=== PATIENT | female | born 1955 | race Caucasian/White ===

== ENCOUNTER → 2020-11-04 | Outpatient (CLI) | payer MEDICARE, OTHER ==
[~2020-11-04] VITALS: Ht 172.7 cm; Wt 108.0 kg
[~2020-11-04] MED LIST: AMARYL2 M1 PO; HYDROCODON-ACE1 EAC7 PO; HYDROXYZINE HCL25 M2 PO; LEXAPRO20 MG PO; LISINOPRIL-HCT1 EAC2 PO; MELOXICAM15 MG PO; METFORMIN HCL500 M3 PO; METHOCARBAMOL750 MG PO; NEURONTIN 300M300 M2 PO; PERCOCET PO; PROVENTIL HFA6.7 G1 INH; ROSUVASTATIN CA20 MG PO; TRAMADOL 50 MG50 MG PO; VOLTAREN100 GM TOP; WELLBUTRIN SR150 MG PO
[2020-11-04 10:31] LABS: ABSOLUTE BASOPHILS 0.1 thou/uL (0.0-0.2); ABSOLUTE EOSINOPHILS 0.3 thou/uL (0.0-0.7); ABSOLUTE LYMPHOCYTES 2.3 thou/uL (0.8-5.3); ABSOLUTE MONOCYTES 1.4 thou/uL (0.0-1.2); ABSOLUTE NEUTROPHILS 6.9 thou/uL (1.6-8.1); BASOPHILS 0.8 %; EOSINOPHILS 2.4 %; HEMATOCRIT 35.4 % (37.0-47.0); LYMPHOCYTES 20.9 %; MCH 29.1 pg (26.0-34.0); MCV 85.5 fL (80.0-100.0); MPV 7.8 fl. (7.2-11.1); NUCLEATED RBCS 0 /100WBC; PLATELET COUNT* 227 thou/uL (150-400); POLYS 62.9 %; RBC 4.14 mil/uL (4.20-5.00); RDW-CV 13.1 % (10.5-14.5)
[2020-11-04 10:43] LABS: PROTIME 10.9 Seconds (9.20-11.50)
[2020-11-04 10:49] LABS: CALCIUM 9.3 mg/dL (8.5-10.1); CREATININE 0.8 mg/dL (0.6-1.3); TOTAL BILIRUBIN 0.5 mg/dL (<0.1-1.0); TOTAL PROTEIN 7.6 g/dL (6.4-8.2)
[2020-11-04 11:55] LABS: ESR (SEDRATE) 25 mm/hr (0-30)
[2020-11-04 12:12] VITALS: BP 150/82
[2020-11-04 23:06] LABS: GLYCOHEMOGLOBIN (HGB A1C) 6.7 % (4.8-5.6)
== END ==
LOC: M.LAB 06:03 → M.ERS 10:10
PROVIDERS: Orthopaedic Surgery
DX: Z01.818 Encounter for other preprocedural examination (principal); M17.11 Unilateral primary osteoarthritis, right knee